=== PATIENT | female | born 1980 | race Caucasian/White ===

== ENCOUNTER 2018-06-18 19:47 | Emergency (ER) | payer MEDICAID ==
[~2018-06-18] VITALS: Ht 149.9 cm; Wt 65.0 kg
[2018-06-18] MEDS ORDERED: SOD CHLORIDE 0.9% 1,000 ML IV STA (20:04)
[2018-06-18] MEDS ORDERED: morphine 4 MG/ML VIAL IV STA (20:04)
[2018-06-18] MEDS ORDERED: ONDANSETRON 4 MG INJ IV STA (20:04)
[2018-06-18 20:10] VITALS: Ht 149.9 cm; Wt 65.0 kg
[2018-06-18] MEDS ORDERED: HYDROmorphONE 0.5 MG/0.5 ML SYG IV STA (21:35)
--- NOTE | 2018-06-19 | ERD ---
ER Documentation Chief Complaint Chief Complaint RLQ abd pain since 10 am HPI This is a 37-year-old female comes in with right lower abdominal pain since 10 AM. Pain is mild to moderate intensity with no exacerbating relieving factors and tends to come in waves. Patient says the headache she had a sudden onset of pain. She was a code green called from ICU. She had mild associated nausea but no vomiting. No fevers or chills. No other current issues. ROS All systems reviewed and are negative except as per history of present illness. Allergies Allergies: Coded Allergies: No Known Allergy (Unverified , 06/18/18) PMhx/Soc Hx Cardiac Disorders: Yes (HLD) Hx Alcohol Use: No Hx Substance Use: No Hx Tobacco Use: No Smoking Status: Never smoker Physical Exam Vitals Vital Signs Date Temp Pulse Resp B/P (MAP) Pulse Ox O2 O2 Flow FiO2 Time Delivery Rate 06/18/18 90 16 119/68 98 Room Air 20:17 (85) 06/18/18 98.6 99 20 127/70 99 20:10 (89) Physical Exam Const: No acute distress Head: Atraumatic Eyes: Normal Conjunctiva ENT: Normal External Ears, Nose and Mouth. Neck: Full range of motion. No meningismus. Resp: Clear to auscultation bilaterally Cardio: Regular rate and rhythm, no murmurs Abd: Soft, non tender, non distended. Normal bowel sounds Skin: No petechiae or rashes Back: No midline or flank tenderness Ext: No cyanosis, or edema Neur: Awake and alert Psych: Normal Mood and Affect Result Diagram: 06/18/18202906/18/182029 Results 24 hrs Laboratory Tests Test 06/18/18 20:28 06/18/18 20:29 06/18/18 20:30 06/18/18 20:32 Bedside Urine pH 8.5 (LAB) Bedside Urine Negative Protein (LAB) Bedside Urine Negative Glucose (UA) Bedside Urine Negative Ketones (LAB) Bedside Urine Negative Blood Bedside Urine Negative Nitrite (LAB) Bedside Urine 1+ Leukocyte Esteras e (L Urine Color YELLOW Urine Clarity SLIGHTLY CLOUDY Urine pH 9.0 Urine Specific 1.006 [place] Urine Ketones NEGATIVE mg/dL Urine Nitrite NEGATIVE mg/dL Urine Bilirubin NEGATIVE mg/dL Urine NEGATIVE mg/dL Urobilinogen Urine Leukocyte TRACE [place]/ul Esterase Urine Microscopic 1 /HPF RBC Urine Microscopic 3 /HPF WBC Urine Squamous FEW /HPF Epithelial Cells Urine Bacteria FEW /HPF Urine Hemoglobin NEGATIVE mg/dL Urine Glucose NEGATIVE mg/dL Urine Total NEGATIVE mg/dl Protein White Blood Count 13.7 10^3/ul Red Blood Count 4.08 10^6/ul Hemoglobin 11.5 g/dl Hematocrit 34.2 % Mean Corpuscular 83.8 fl Volume Mean Corpuscular 28.2 pg Hemoglobin Mean Corpuscular 33.6 g/dl Hemoglobin Concen t Red Cell 13.2 % Distribution Width Platelet Count 229 10^3/UL Mean Platelet 11.5 fl Volume Immature 0.500 % Granulocytes % Neutrophils % 79.5 % Lymphocytes % 12.3 % Monocytes % 7.0 % Eosinophils % 0.3 % Basophils % 0.4 % Nucleated Red 0.0 /100WBC Blood Cells % Immature 0.070 10^3/ul Granulocytes # Neutrophils # 10.9 10^3/ul Lymphocytes # 1.7 10^3/ul Monocytes # 1.0 10^3/ul Eosinophils # 0.0 10^3/ul Basophils # 0.1 10^3/ul Nucleated Red 0.0 10^3/ul Blood Cells # Sodium Level 141 mmol/L Potassium Level 4.1 mmol/L Chloride Level 102 mmol/L Carbon Dioxide 25 mmol/L Level Anion Gap 14 Blood Urea 10 mg/dl Nitrogen Creatinine 0.52 mg/dl Est Glomerular > 60 mL/min Filtrat Rate mL/min Glucose Level 117 mg/dl Calcium Level 9.6 mg/dl Total Bilirubin 0.3 mg/dl Direct Bilirubin 0.00 mg/dl Indirect 0.3 mg/dl Bilirubin Aspartate Amino 25 IU/L Transf (AST/SGOT) Alanine 24 IU/L Aminotransferase (ALT/SGPT) Alkaline 97 IU/L Phosphatase Total Protein 7.8 g/dl Albumin 4.5 g/dl Globulin 3.30 g/dl Albumin/Globulin 1.36 Ratio Lipase 111 U/L POC Beta HCG, NEGATIVE Qualitative Current Medications Medications Dose Sig/Cristal Start Time Status Last (Trade) Ordered Route PRN Stop Time Admin Dose Reason Admin Sodium 1,000 ml @ Q1H STAT 06/18/18 DC 06/18/18 Chloride 1,000 mls/hr IV 20:04 20:40 06/18/18 21:03 Morphine 4 mg ONCE STAT 06/18/18 DC 06/18/18 Sulfate IV 20:04 20:40 (morphine) 06/18/18 20:17 Ondansetron 4 mg ONCE STAT 06/18/18 DC 06/18/18 HCl (Zofran IV 20:04 20:40 Inj) 06/18/18 20:17 1 mg ONCE STAT 06/18/18 DC 06/18/18 Hydromorphone IV 21:35 21:51 HCl 06/18/18 21:36 (Dilaudid) Procedures/MDM Emergency department course: Patient seen and brought by triage nurse. Placed in bed from evaluation. Had blood work done. Given pain medication. Serial examinations were stable. Diagnostic data: Ultrasound showed possible hydronephrosis. Please evaluate his full dictation full report. CT shows resolution of hydronephrosis. Please read dictation full report. Medical decision making: This very pleasant patient who had sudden onset of abdominal pain. She does have some mild mesenteric adenitis, however she seems more likely passed a kidney stone. At this point she is clinically stable for outpatient management her pain is resolved. Patient will be discharged home to be asked to follow-up in 8 hours for serial abdominal exams to which she agrees. She has no evidence of surgical abdomen at this time and is completely pain- free. Patient's gastrointestinal symptoms have stabilized while in the department. No evidence of severe dehydration, sepsis, or surgical abdomen. Extensive discussion with family and patient that occult disease cannot be ruled out. 8 hour recheck for repeat abdominal exam is planned. Departure Diagnosis: Primary Impression: Abdominal pain Abdominal location: unspecified location Qualified Codes: R10.9 - Unspecified abdominal pain Condition: Stable SHANI BISHOP Jun 19, 2018 00:00
[2018-06-19] MEDS ORDERED: TRAM50TA2 PO (00:02)
[2018-06-19] MEDS ORDERED: ONDA4TAB14 PO (00:02)
[2018-06-19] MEDS ORDERED: KETOROLAC 30 MG INJ IV STA (00:22)
[2018-06-19 00:33] VITALS: BP 128/83; PULSE 74; RESP 18
== END 2018-06-19 00:33 | disposition home or self-care (01) ==
LOC: E/R 19:47
DX: R10.9 Unspecified abdominal pain (principal); R11.0 Nausea
CPT/HCPCS: 36415; 74176; 76705; 80053; 81001; 81025; 83690; 85025; 96374; 96375; J1170; J2270; J2405; J7030; Z7502; 81003